=== PATIENT | female | born 1930 | race Caucasian/White ===

== ENCOUNTER → 2016-09-15 | Outpatient (CLI) | payer MEDICARE, OTHER ==
[~2016-09-15] MED LIST: ADVAIR 250-501 EAC1 IH; ADVAIR 2501 DISK W/1 INH; ADVAIR 2501 DISK W/D PO; ALBUTEROL 0.5ML INH; ALBUTEROL MININEB NEB; ALPRAZOLAM0.25 MG PO; AMIODARONE PO; AMLODIPINE BESY10 MG PO; ASPIRIN81 MG PO; CALAZIME P113 GM OI1 EXT; CELEXA PO; CELEXA10 MG PO; CITALOPRAM HBR10 MG PO; CLOPIDOGREL75 MG PO; CRANBERRY200 MG PO; DULCOLAX5 MG PO; HYDRALAZINE HC100 MG PO; K-DUR20 ME1 PO; LASIX; LASIX20 MG PO; LASIX80 MG PO; LEVOTHYROXINE50 MCG PO; LIPITOR80 MG PO; LOPID600 MG; LOPID600 MG PO; LOPRESSOR PO; MACROBID 100 M100 MG PO; MULTI VITAMIN1 EACH PO; MULTI-VITAMIN1 EAC1 PO; MULTI-VITAMIN1 TAB; NITROGLYGERIN0.4 MG SL; NYSTATIN5 ML PO; OXYGEN; PANTOPRAZOLE SO40 MG PO; PREDNISONE1 MG; PREDNISONE1 MG PO; PROAIR HFA8.5 GM INH; SPIRIVA RESPIMAT4 G1; SPIRIVA18 MCG INH; SPIRIVA18 MCG PO; STOOL SOFTNER; SYMBICORT INH; TARKA 2/2401 BOTTLE; TARKA PO; TOPROL XL; TOPROL XL50 MG PO; VANTIN200 MG PO; VASELINE WHITE P5 GM TOP; VERAPAMIL HCL360 MG PO; VICODIN 5/500 T1 TAB PO; ZETIA; ZETIA PO; [UNRECOGNIZED DRUG - OTHER] TOP
--- NOTE | ~2016-09-15 | MY29 ---
[facility] A Service of [facility] & [facility] RADIOLOGY TEXT RESULTS PATIENT: BENOIT MCDNAIEL LOCATION: [facility] : [birth year] UNIT #: [id number] AGE: [address]: Marissa Schmidt MD SEX: F ORDER DR: [id number] [facility] [address] [place], [place] [address] [id number] O MR#: [id number] Acc #: [id number] NAME: BENOIT MCDANIEL : 1930 SEX: F STUDY DATE/TIME: 09/15/2016 11:24 UNIT: [facility] ROOM: STUDY DESCRIPTION: MY ROBBI SCREENING W/ CAD BILAT Attending Physician: Marissa Schmidt M.D. Ordering Physician: Marissa Schmidt M.D. Primary Care Physician: Marissa Schmidt M.D. MEDICAL IMAGING REPORT This report is preliminary unless electronic signature is present EXAM Digital screening mammogram, 09/15/2016 HISTORY 86-year-old woman no risk elevation. Annual screening. COMPARISON Mammograms date to 11/17/2005 with most recent 09/04/2015. FINDINGS Digital imaging of each breast was completed utilizing a two-view examination of each breast in craniocaudal and mediolateral-oblique projections. Review and interpretation of digital mammograms include a second review in conjunction with FDA-approved CAD device. There is a normal parenchymal presentation bilaterally consistent with the patient's age. There are no breast masses imaged and no parenchymal asymmetry is visualized. There are no suspicious microcalcifications and I see no focal architectural disturbance. IMPRESSION Negative screening digital mammogram. One-year followup recommended. Patients over the age of 40 are entered into a reminder system with target due date for the next mammogram. A result letter will also be sent to the patient. BIRADS: 1 Negative Dictated by... Ciaran Villagomez M.D. THIS IS AN ELECTRONICALLY VERIFIED REPORT Ciaran Villagomez M.D. at 09/15/2016 2:40 PM [facility] A Service of [facility] & [facility] RADIOLOGY TEXT RESULTS PATIENT: BENOIT MCDANIEL LOCATION: [facility] #: [id number] : [birth year] UNIT #: [id number] AGE: [address]: Marissa Schmidt MD SEX: F ORDER DR: Michele TD: 09/15/2016 13:59 JOB #: [id number] MEDICAL IMAGING REPORT Page 1 of 1 COPY
== END | disposition home or self-care (01) ==
LOC: CWCC 09-08 10:15
DX: Z12.31 Encounter for screening mammogram for malignant neoplasm of breast (principal)
CPT/HCPCS: G0202